=== PATIENT | female | born 1995 | race Two or more races ===

== ENCOUNTER 2017-09-30 07:27 | Day surgery (SDC) | payer OTHER ==
[~2017-09-30] VITALS: Ht 160 cm; Wt 76.7 kg
[~2017-09-30 07:27] MED LIST: HYDR-971 PO; HYDROmorphone 2 MG/ML VIAL IV PRN; IV RINGERS,LACTATED 1000ML 1,000 ML IV SCH; LIDOCAINE 1% PF 2 ML VIAL. ID PRN; MORPHINE SULFATE 2 MG/ML DISP.SYRIN. IV PRN; OMEP20TA63 PO; ONDA4TAB10 PO; ONDA4TAB10 SL; ONDANSETRON PF 4 MG/2 ML VIAL. IV PRN; PROCHLORPERAZINE 10 MG/2 ML VIAL. IV PRN; fentaNYL PF VIAL 100 MCG/2 ML VIAL IV PRN
[2017-09-30 08:20] LABS: NEG OBC UR NEG; POS OBC UR POS
[2017-09-30] MEDS ORDERED: VENTOLIN HFA18 GM INH (08:40)
[2017-09-30] MEDS ORDERED: ONDANSETRON PF 4 MG/2 ML VIAL. ONE (10:11)
[2017-09-30] MEDS ORDERED: DEXAMETHASONE SOD PHOS 20 MG/5 ML VIAL. ONE (10:11)
[2017-09-30] MEDS ORDERED: PROPOFOL 20 ML IV ONE (10:11)
[2017-09-30] MEDS ORDERED: ROCURONIUM 50 MG/5 ML VIAL. ONE (10:12)
[2017-09-30] MEDS ORDERED: MIDAZOLAM HCL/PF 2 MG/2 ML VIAL. ONE (10:12)
[2017-09-30] MEDS ORDERED: fentaNYL PF VIAL 250 MCG/5 ML VIAL ONE (10:12)
[2017-09-30] MEDS ORDERED: LIDOCAINE 1% PF 5 ML VIAL. ONE (10:13)
[2017-09-30] MEDS ORDERED: IOHEXOL 300 MG/ML 100ML VIAL. ONE (10:15)
[2017-09-30] MEDS ORDERED: SURGICEL HEMOSTAT 4X8 EACH. ONE (10:16)
[2017-09-30] MEDS ORDERED: BUPIVACAINE-EPI 0.25%-1:200000 50 ML VIAL. ONE (10:16)
[2017-09-30] MEDS ORDERED: BUPIVACAINE-EPI 0.25%-1:200000 MPF 30 ML VIAL. IJ ONE (11:02)
[2017-09-30] MEDS ORDERED: NEOSTIGMINE 10 MG/10 ML VIAL. ONE (11:03)
[2017-09-30] MEDS ORDERED: GLYCOPYRROLATE 1 MG/5 ML VIAL. ONE (11:04)
--- NOTE | 2017-09-30 11:24 | PDOC4 ---
Operative Note Operative Note Date: 09/30/2017 Preoperative diagnosis: Chronic cholecystitis cholelithiasis Postoperative diagnosis: Same Procedure: Laparoscopic cholecystectomy Surgeon: Noe Specimen: Gallbladder Dictation: Patient is a 22-year-old female is had right upper quadrant abdominal pain ultrasound showing gallstones the procedure of lap scopic cholecystectomy was explained to the patient detail was benefits were also discussed including bleeding infection injury to intra-abdominal contents possibly necessitating further or open operations. Alternatives to this procedure also discussed with the patient seemed understanding gave both verbal and written consent had procedure performed. Taken to the operating room placed in supine position general anesthesia was initiated once patient was asleep and intubated her abdomen was prepped and draped usual sterile fashion using ChloraPrep and area just below the umbilicus was injected with quarter percent Marcaine with epinephrine incision was made with 11 blade scalpel and a varies needle was placed within the abdomen. A pneumoperitoneum was achieved once this complete a 11 mm port was placed in a fibromata camera was placed within the abdomen. The abdomen was inspected no other at maladies were noted at this point a 5 OmegaPort was placed under direct visualization the epigastrium 2 more 5 mm ports were placed under direct visualization the right upper quadrant the dome of the gallbladder was grasped retracted cephalad the infundibulum of the gallbladder's grasped tract laterally exposing the triangle. Adherent tissues the triangle are taken down bluntly dissection exposing the cystic duct and cystic artery both were doubly clipped and transected the gallbladder was taken off the liver with hook electrocautery placed in Endo Catch bag and removed from the umbilicus the right upper quadrant was irrigated and suctioned dry hemostasis deemed to be appropriate and the pneumoperitoneum was reduced. All ports removed fascial defect at the umbilicus closed [id number] 0 Vicryl suture and the skin was approximated all port sites 4 septic or Monocryl mass all Steri-Strips and Band-Aids were applied as dressings. Patient was waken next made in the operating room taken recovery in stable condition all sponge instrument needle counts listed as correct estimate blood loss 10 mL. TYLER MALDONADO MD Sep 30, 2017 11:23
--- NOTE | 2017-09-30 11:25 | DISCH ---
DISCHARGE INSTRUCTIONS Condition on Discharge Condition on Discharge: Stable Activity After Discharge Activity Instructions for Disc: Avoid exertion Other activity instructions: No lifting >20lbs for 2 weeks Diet after Discharge Diet after Discharge: Low Fat Wound Incision Care Other wound/incision instructi: May shower in 24 hours Contacting the after DC Call your doctor for: If your condition worsens Follow-Up Follow up with: Dr Maldonado in 2 weeks TYLER MALDONADO MD Sep 30, 2017 11:25
[2017-09-30] MEDS ORDERED: OXYC-323 PO (11:57)
[2017-09-30] MEDS ORDERED: IOHEXOL 300 MG/ML 50 ML VIAL. ONE (12:12)
[2017-09-30] MEDS ORDERED: oxyCODONE/APAP 5/325 1 TAB TABLET PO ONE (12:15)
[2017-09-30 12:46] VITALS: BP 109/50
--- NOTE | 2017-10-01 14:19 | PATHOLOGY ---
PATHOLOGY REPORT * * * * * * * * FINAL DIAGNOSIS: Gallbladder, laparoscopic cholecystectomy: - Cholelithiasis. - Cholesterolosis. - Chronic cholecystitis. COMMENT: There is no evidence of malignancy. (JPM:pit; 10/01/2017) REPORT ELECTRONICALLY SIGNED BY: Buster Sosa M.D. DATE/TIME: 10/01/2017 14:18 * * * * * * * * GROSS PATHOLOGY: Received in formalin labeled "Satnam Giraldo, gallbladder," is a 6.7 x 2.5 x 1.8 cm, intact gallbladder with dark pink to purple, slightly vascular serosal surfaces. Opening the gallbladder reveals dark arambula, velvety mucosa, rippled with yellow highlights, and an average wall thickness of 0.2 cm. Calculi are present, measuring 1.6 cm in maximum dimension, possessing a light arambula color, and feeling firm to the touch. No masses are noted grossly. Business Broker sections from the body and fundus are submitted along with the proximal margin in cassette A1. (TSD; 09/30/2017) INITIAL CPT CODE(S): A; 22452 Professional services performed [place] [facility] [address] Technical services performed by [facility] at [address] [place] [address], [facility] [address], [place] [address]. SPECIMEN(S) RECEIVED: A.Gallbladder CLINICAL HISTORY: Chronic cholecystitis with calculus PATIENT: SATNAM GIRALDO /AGE: 705/29/1995 (Age: 22) PATIENT #: [id number] ALT CASE #: SPECIMEN COLLECTION DATE: 09/30/2017 SPECIMEN RECEIVED DATE: 09/30/2017 [facility] - [id number] [place] [address] - PHONE: [phone] * * * END OF REPORT * * *
== END 2017-09-30 13:19 | disposition home or self-care (01) ==
LOC: SURG 07:27
PROVIDERS: ATTEND Surgery
DX: K80.10 Calculus of gallbladder with chronic cholecystitis without obstruction (principal); J45.909 Unspecified asthma, uncomplicated
CPT/HCPCS: 47562; 81025; 88304; J0690; J0780; J1100; J2250; J2405; J2704; J2710; J3010; J3490; J7030; J7120; Q9967

== ENCOUNTER 2019-07-06 13:25 | Emergency (ER) | payer OTHER ==
[~2019-07-06] VITALS: Ht 160 cm; Wt 68.9 kg
[2019-07-06 13:25] VITALS: BP 132/82
[~2019-07-06 13:25] MED LIST changes: +HYDR-3164 PO; -HYDR-971 PO; -HYDROmorphone 2 MG/ML VIAL IV PRN; -IV RINGERS,LACTATED 1000ML 1,000 ML IV SCH; -LIDOCAINE 1% PF 2 ML VIAL. ID PRN; -MORPHINE SULFATE 2 MG/ML DISP.SYRIN. IV PRN; -ONDANSETRON PF 4 MG/2 ML VIAL. IV PRN; +OXYC1TAB15 PO; -PROCHLORPERAZINE 10 MG/2 ML VIAL. IV PRN; +VENTOLIN HFA18 GM INH; -fentaNYL PF VIAL 100 MCG/2 ML VIAL IV PRN
[2019-07-06] MEDS ORDERED: ALBUTEROL SULFATE 2.5 MG/3 ML NEBU. NEB ONE (13:45)
--- NOTE | 2019-07-06 14:21 | PHYS DOC ---
Past Medical History Past Medical History: Asthma Additional Past Medical Histor: allergies Past Surgical History: Cholecystectomy Alcohol Use: Occasionally Drug Use: None Adult General Chief Complaint Chief Complaint: ASTHMA HPI HPI Patient is a 24 year old [f__sex] who presents with [] Review of Systems Review of Systems Constitutional: Denies fever or chills [] Eyes: Denies change in visual acuity, redness, or eye pain [] HENT: Denies nasal congestion or sore throat [] Respiratory: Denies cough or shortness of breath [] Cardiovascular: No additional information not addressed in HPI [] GI: Denies abdominal pain, nausea, vomiting, bloody stools or diarrhea [] : Denies dysuria or hematuria [] Musculoskeletal: Denies back pain or joint pain [] Integument: Denies rash or skin lesions [] Neurologic: Denies headache, focal weakness or sensory changes [] Endocrine: Denies polyuria or polydipsia [] All other systems were reviewed and found to be within normal limits, except as documented in this note. Current Medications Current Medications Current Medications Medications (Trade) Dose Ordered Sig/Elisabet Start Time Stop Time Status Last Admin Dose Admin Albuterol Sulfate (Ventolin Neb Soln) 2.5 mg 1X ONCE 07/06/19 13:45 07/06/19 13:46 DC 07/06/19 13:50 2.5 MG Allergies Allergies Allergies Coded Allergies Type Severity Reaction Last Updated Verified No Known Drug Allergies 09/30/17 No Physical Exam Physical Exam Constitutional: Well developed, well nourished, no acute distress, non-toxic amari earance. [] HENT: Normocephalic, atraumatic, bilateral external ears normal, oropharynx moist, no oral exudates, nose normal. [] Eyes: PERRLA, EOMI, conjunctiva normal, no discharge. [] Neck: Normal range of motion, no tenderness, supple, no stridor. [] Cardiovascular:Heart rate regular rhythm, no murmur [] Lungs & Thorax: Bilateral breath sounds clear to auscultation [] Abdomen: Bowel sounds normal, soft, no tenderness, no masses, no pulsatile masses. [] Skin: Warm, dry, no erythema, no rash. [] Back: No tenderness, no CVA tenderness. [] Extremities: No tenderness, no cyanosis, no clubbing, ROM intact, no edema. [] Neurologic: Alert and oriented X 3, normal motor function, normal sensory function, no focal deficits noted. [] Psychologic: Affect normal, judgement normal, mood normal. [] Current Patient Data Vital Signs Vital Signs Date Time Temp Pulse Resp B/P (MAP) Pulse Ox O2 Delivery O2 Flow Rate FiO2 07/06/19 13:50 100 Room Air 07/06/19 13:25 98.4 80 24 132/82 (99) 98.4 EKG EKG [] Radiology/Procedures Radiology/Procedures [] Course & Med Decision Making Course & Med Decision Making Pertinent Labs and Imaging studies reviewed. (See chart for details) [] Dragon Disclaimer Dragon Disclaimer This electronic medical record was generated, in whole or in part, using a voice recognition dictation system. Departure Departure Impression: Primary Impression: Asthma exacerbation Disposition: 01 HOME, SELF-CARE Condition: STABLE Referrals: UNKNOWN PCP NAME (PCP) Patient Instructions: Asthma Attacks, Prevention Additional Instructions: Continue taking your home medications as prescribed. Follow up with your primary care doctor if symptoms persist, return to the ER if symptoms worsen. Problem Qualifiers Primary Impression: Asthma exacerbation Asthma severity: mild Asthma persistence: intermittent Qualified Codes: J45.21 - Mild intermittent asthma with (acute) exacerbation SHAHRZAD DOMINGO [employer] FI[employer] TECHNICIAN Jul 06, 2019 14:21
== END 2019-07-06 14:37 | disposition home or self-care (01) ==
LOC: ER 13:25
DX: J45.21 Mild intermittent asthma with (acute) exacerbation (principal)
CPT/HCPCS: 94640; 99283; J7613

== ENCOUNTER 2021-06-05 21:23 | Emergency (ER) | payer OTHER ==
[~2021-06-05] VITALS: Ht 160 cm; Wt 77.0 kg
[2021-06-05 21:54] VITALS: BP 116/70
== END 2021-06-05 23:26 | disposition left against medical advice (07) ==
LOC: ER 21:23
DX: R42 Dizziness and giddiness (principal); M25.512 Pain in left shoulder; Z53.21 Procedure and treatment not carried out due to patient leaving prior to being seen by health care provider